=== PATIENT | female | born 1960 | race Caucasian/White ===

== ENCOUNTER → 2017-03-04 | Outpatient (CLI) | payer BC ==
[~2017-03-04] MED LIST: CITA20TA4 PO; MULT1TAB10 PO; QUES4POW2 PO; XYZA5TAB2 PO; [UNRECOGNIZED DRUG - CODE] PO
[2017-03-04 10:30] LABS: BASO % 0.2 % (0.0-1.0); EOS # 0.1 K/mm3 (0.0-0.50); EOS % 1.1 % (0.0-3.0); LARGE UNSTAINED CELL # 0.3 K/mm3 (0.0-0.4); LYMPH # 2.4 K/mm3 (1.5-4.5); LYMPH % 36.5 % (24.0-44.0); MEAN CORPUSCULAR HEMOGLOBIN 30.6 pg (27.0-33.0); MEAN CORPUSCULAR HGB CONC 33.7 g/dl (32.0-36.5); MONO # 0.5 K/mm3 (0.0-0.8); MONO % 7.5 % (0.0-5.0); NEUTROPHILS # 3.4 K/mm3 (1.8-7.7); NEUTROPHILS % 50.7 % (36.0-66.0); PLATELET COUNT, AUTOMATED 242 k/mm3 (150-450); RED CELL DISTRIBUTION WIDTH 11.8 % (11.5-14.5); WHITE BLOOD COUNT 6.6 K/mm3 (4.0-10.0)
[2017-03-04 10:51] LABS: ANION GAP 6 MEQ/L (8-16); BLOOD UREA NITROGEN 24 MG/DL (7-18); CALCIUM LEVEL 8.9 MG/DL (8.5-10.1); CARBON DIOXIDE LEVEL 31 MEQ/L (21-32); CHLORIDE LEVEL 103 MEQ/L (98-107); CREATININE FOR GFR 0.78 MG/DL (0.55-1.02); GLOMERULAR FILTRATION RATE > 60.0 (>51); GLUCOSE, FASTING 83 MG/DL (70-105); POTASSIUM SERUM 4.5 MEQ/L (3.5-5.1); SODIUM LEVEL 140 MEQ/L (136-145)
--- NOTE | 2017-03-05 08:01 | ECGEPIP ---
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
== END ==
LOC: M LAB 09:25
PROVIDERS: ATTEND Podiatrist
DX: Z01.818 Encounter for other preprocedural examination (principal); R00.1 Bradycardia, unspecified; M72.2 Plantar fascial fibromatosis

== ENCOUNTER → 2017-03-25 | Day surgery (SDC) | payer BC ==
[~2017-03-25] VITALS: Ht 172.7 cm; Wt 70.3 kg
[~2017-03-25] MED LIST changes: +BACITRACIN PWD 50,000 UNITS VIAL As Ordered ONE; +BUPIVACAINE HCL 0.5% 30 ML VIAL As Ordered ONE; +KETOROLAC 60 MG/2 ML VIAL (J1885) As Ordered ONE; +LIDOCAINE 2% INJ 100 MG/5 ML SDV (FOR ANES.) As Ordered ONE; +LIDOCAINE 2% MDV 20 ML VIAL As Ordered ONE; +MIDAZOLAM INJ 2 MG/2 ML VIAL (J2250) As Ordered ONE; +NEOSPORIN GU IRRIG 20 ML VIAL As Ordered ONE; +ONDANSETRON 4MG/2ML VIAL (J2405) As Ordered ONE; +PROPOFOL 200 MG/20 ML VIAL As Ordered ONE; +dexameTHASONE 4 MG/ML 1ML VIAL (J1100) As Ordered ONE; +fentaNYL 100 MCG/2 ML INJECTION (J3010) As Ordered ONE
--- NOTE | 2017-03-25 11:46 | REP ---
Clinical: Baseline postoperative evaluation. Technique: Portable AP, lateral, oblique views. Findings: Postoperative changes involving the first toe noted. Overlying swelling and subcutaneous emphysema identified. Alignment is maintained. Mild degenerative changes at the first tarsometatarsal joint with sub chondral sclerosis and marginal osteophyte formation noted. Impression: Postoperative changes. Degenerative changes. Normal alignment. Signed by Casey Chiu MD 03/25/2017 11:37 A
[2017-03-25 13:00] VITALS: BP 141/81
--- NOTE | 2017-03-26 14:45 | RO ---
DATE OF PROCEDURE: 03/25/2017 PREPROCEDURE DIAGNOSES: Plantar fasciitis of the left foot and hallux limitus deformity of the right foot. POSTPROCEDURE DIAGNOSES: Plantar fasciitis of the left foot and hallux limitus deformity of the right foot. SURGEON: Thiago Rizvi DPM TECHNICAL SALES SUPPORT MANAGER: None. ANESTHESIA: Local, monitored anesthesia care (MAC). Procedure: ENDOSCOPIC PLANTAR FASCIOTOMY, LEFT FOOT: CHEILECTOMY OF FIRST METATARSOPHALANGEAL JOINT, RIGHT FOOT: IRRIGATION: Dilute bacitracin, neomycin and polymyxin B solution. HEMOSTASIS: Ankle tourniquet at 200 mmHg for 16 minutes on the left ankle and 25 minutes on the right. HARDWARE UTILIZED: None. ESTIMATED BLOOD LOSS: Less than 5 mL. DESCRIPTION OF PROCEDURE: On 03/25/2017, this 56-year-old white female was taken from her hospital room to the operating room and placed on the operating room table in a supine position. Following the induction of IV sedation, local and regional anesthesia, the left and right lower extremities were prepped and draped in the usual aseptic manner. Attention was directed to the patient's left foot where the tourniquet was rapidly inflated and the following procedure was performed: ENDOSCOPIC PLANTAR FASCIOTOMY, LEFT FOOT: Attention was directed to the patient's left foot where a small 6 to 7 mm vertical incision was placed just distal to the medial tuberosity of the left heel. Utilizing the dissection scissor, dissection was carried inferior to the plantar fascia. Utilizing tissue distender, the area was distended and an Arthrex center line EPF plate was then introduced into the wound, visualizing the plantar fascia. Approximately 3/4 of the plantar fascia was then transected under direct visualization to exposure of the first muscle layer. The endoscope was then removed and the wound was flushed with copious amount of dilute bacitracin, neomycin and polymyxin B solution. Attention was directed toward closure where the subcutaneous tissues were coapted and maintained utilizing #5-0 Monocryl in a simple and interrupted fashion and the skin was coapted and maintained with #4-0 Monocryl in a horizontal mattress fashion. Dry sterile dressing was applied consisting of Adaptic, 4 x 4, 4 x 4 splints, Quentin and Kerlix. Attention was then directed to the patient's right foot where the following p[procedure was performed: CHEILECTOMY OF FIRST METATARSOPHALANGEAL JOINT, RIGHT FOOT: Attention was directed to the patients right foot where a 5 cm incision was placed over the first metatarsophalangeal joint medial to the extensor tendon. The incision was deepened through subcutaneous tissues and all coursing venous tributaries were identified, underscored, clamped, cut, ligated, and electrocoagulated as necessary. A linear capsulotomy was then performed in the same plane was the original skin incision. Capsular and periosteal structures were then dissected free in one continuous layer, dorsal, medially and laterally thus creating a capsular and periosteal type envelope. The sesamoids were released with a metatarsal elevator. The medial eminence was osteotomized from dorsal to plantar with a sagittal saw exiting medial to the sesamoidal groove. A large cystic erosion was seen in the dorsal 30% of the articular cartilage; however, with osteotomy through this exostosis, this totally encompassed the area of denuded bone. Dorsal 20% of the proximal phalanx was similarly osteotomized from dorsal to plantar. The wound was then rasped to a smooth contour with a handheld rasp. The wound was flushed with copious amounts of dilute bacitracin, neomycin and polymyxin B solution. Closure was then obtained with #2-0 Monocryl in a simple, interrupted type fashion. Subcutaneous tissues were coapted and maintained utilizing #4-0 Monocryl in a simple interrupted type fashion. The skin incision was coapted and maintained utilizing #5-0 Monocryl in a continuous subcuticular type fashion. This was additionally reinforced with Steri-Strips. Following the completion of the surgical procedure, 4 mg of dexamethasone sodium phosphate was instilled proximal to the surgical site. Attention was directed towards bandaging where a sterile compressive bandage was applied consisting of Adaptic, 4x4s, 4x4 splints, Quentin, Kerlix and Coban. The ankle pneumatic tourniquet was rapidly deflated and instantaneous capillary filling time was noted in digits one through five of the patients right foot. The patient, having apparently tolerated the surgical procedure well, was taken from the operating room to the recovery room with vital signs stable and the patient afebrile for further monitoring by the anesthesia department. All surgical specimens removed during the operative procedure were sent to pathology for gross and microscopic examination. Postoperative instructions will be given upon discharge. JASWINDER
== END ==
LOC: M SDC 07:36
PROVIDERS: ATTEND Podiatrist
DX: M20.21 Hallux rigidus, right foot (principal); M72.2 Plantar fascial fibromatosis; M79.671 Pain in right foot; M79.672 Pain in left foot; F43.21 Adjustment disorder with depressed mood; K52.839 Microscopic colitis, unspecified; Z87.891 Personal history of nicotine dependence; Z79.899 Other long term (current) drug therapy
CPT/HCPCS: 28289; 29893; 73630; 88300; 97116; J0690; J1100; J1885; J2250; J2405; J3010

== ENCOUNTER → 2017-04-12 | Outpatient (CLI) | payer BC ==
[~2017-04-12] MED LIST changes: -BACITRACIN PWD 50,000 UNITS VIAL As Ordered ONE; -BUPIVACAINE HCL 0.5% 30 ML VIAL As Ordered ONE; -KETOROLAC 60 MG/2 ML VIAL (J1885) As Ordered ONE; -LIDOCAINE 2% INJ 100 MG/5 ML SDV (FOR ANES.) As Ordered ONE; -LIDOCAINE 2% MDV 20 ML VIAL As Ordered ONE; -MIDAZOLAM INJ 2 MG/2 ML VIAL (J2250) As Ordered ONE; -NEOSPORIN GU IRRIG 20 ML VIAL As Ordered ONE; -ONDANSETRON 4MG/2ML VIAL (J2405) As Ordered ONE; -PROPOFOL 200 MG/20 ML VIAL As Ordered ONE; -dexameTHASONE 4 MG/ML 1ML VIAL (J1100) As Ordered ONE; -fentaNYL 100 MCG/2 ML INJECTION (J3010) As Ordered ONE
--- NOTE | 2017-04-12 14:14 | REPMRS ---
Patient History The patient states she had a clinical breast exam in 04/23 Patient is postmenopausal. Family history of prostate cancer in father at age 50 or over, breast cancer in maternal grandmother at age 50 or over, and colorectal cancer in paternal grandmother at age 50 or over. Digital Woman Screen Mammo: April 12, 2017 - Exam #: [id number] Bilateral CC and MLO view(s) were taken. Technologist: Sherri Villagomez, Technologist Prior study comparison: October 20, 2016, right breast digital mammo diagnostic unilateral, performed at [facility]. April 06, 2016, digital mammo diagnostic bilateral, performed at [facility]. March 26, 2015, digital woman screen mammo performed at [facility]. FINDINGS: There are scattered fibroglandular densities. There has been no change in the appearance of the mammogram from the prior studies. There is a mild amount of scattered fibroglandular density which is fairly symmetric. There is no interval development of dominant mass, architectural distortion, or clustered microcalcification suggestive of malignancy. ASSESSMENT: BI-RADS/ACR category 1 mammogram. Negative. Recommendation Routine screening mammogram in 1 year (for women over age 40). This mammogram was interpreted with the aid of an FDA-approved computer-aided dectection system. Electronically Signed By: Walter Ramos MD 04/12/17 [id number]
== END ==
LOC: M WHC 13:14
PROVIDERS: ATTEND Nurse Practitioner Family
DX: Z12.31 Encounter for screening mammogram for malignant neoplasm of breast (principal); Z78.0 Asymptomatic menopausal state; Z80.3 Family history of malignant neoplasm of breast; Z80.0 Family history of malignant neoplasm of digestive organs

== ENCOUNTER → 2018-06-27 | Outpatient (REF) | payer BC ==
[2018-06-30 14:57] LABS: HPV HYBRID CAPTURE II Negative (Negative)
== END ==
LOC: M SFHCWAGY 16:07
DX: Z12.4 Encounter for screening for malignant neoplasm of cervix (principal)
CPT/HCPCS: G0123

== ENCOUNTER → 2018-06-27 | Outpatient (CLI) | payer BC | LOC: M WHC 15:39 | DX: Z12.31 Encounter for screening mammogram for malignant neoplasm of breast (principal); Z78.0 Asymptomatic menopausal state | CPT/HCPCS: 77067 ==

== ENCOUNTER → 2019-06-29 | Outpatient (CLI) | payer BC ==
[~2019-06-29] MED LIST changes: -CITA20TA4 PO; +CITA20TA6 PO; +D3 S1CAP3 PO; -[UNRECOGNIZED DRUG - CODE] PO
--- NOTE | 2019-06-29 10:02 | REP ---
BILATERAL SCREENING DIGITAL MAMMOGRAM WITH 3D TOMOSYNTHESIS: There are no palpable abnormalities or other breast complaints. The the patient states she had a clinical breast examination June,. The the patient states she performs self-breast examinations zero times per year. The Tyrer-Cuzick Score is: 12.7% . Comparison is 03/26/2015. There are scattered areas of fibroglandular density. There is no dominant mass, micro calcific cluster or architectural distortion that would indicate malignancy. There are benign calcifications. There are no additional findings on 3D tomosynthesiss. There is no change from the prior study. Impression: BIRADS/ACR category 2 mammogram. Benign findings. Recommendation: Routine annual screening mammography. This mammogram was interpreted with the aid of a FDA approved computer-aided detection system. A. Negative mammogram reports should not delay biopsy if a dominant or clinically suspicious mass is present. B. Not all breast cancers are identified by mammography or tomosynthesis. C. Adenosis and dense breasts may obscure an underlying neoplasm. Patient letter M1. Electronically Signed by Behzad Gold MD 06/29/2019 09:54 A
== END ==
LOC: M WHC 08:28
PROVIDERS: ATTEND Nurse Practitioner Family
DX: Z12.31 Encounter for screening mammogram for malignant neoplasm of breast (principal)

== ENCOUNTER → 2020-11-19 | Outpatient (CLI) | payer BC ==
--- NOTE | 2020-11-19 09:21 | REPMRS ---
Patient History The patient states she had a clinical breast exam in November 2020. Patient is postmenopausal. Family history of prostate cancer at age 50 or over in father, breast cancer at age 50 or over in maternal grandmother, colorectal cancer at age 50 or over in paternal grandmother, endometrial cancer at age 87 in maternal aunt. No Hormone Replacement Therapy 3D TOMOSYNTHESIS WAS PERFORMED. The [facility] lifetime risk for breast cancer is 12.0%. Volpara breast density b. Bilateral breast reduction 2019. Digital Woman Screen Mammo: November 19, 2020 - Exam #: [id number] Bilateral CC and MLO view(s) were taken. Technologist: Ava Barone, Technologist Prior study comparison: June 29, 2019, bilateral digital woman screen mammo performed at [facility]. June 27, 2018, bilateral digital woman screen mammo performed at [facility]. FINDINGS: There are scattered fibroglandular densities. There has been no change in the appearance of the mammogram from the prior studies. There is a mild amount of residual fibroglandular tissue which is fairly symmetric. There is no interval development of dominant mass, architectural distortion, or clustered microcalcification suggestive of malignancy. Assessment: BI-RADS/ACR category 1 mammogram. Negative Mammogram. Recommendation Routine screening mammogram in 1 year (for women over age 40). This mammogram was interpreted with the aid of an FDA-approved computer-aided dectection system. Electronically Signed By: Behzad Campos MD 11/19/20 [id number]
== END ==
LOC: M WHC 08:05
PROVIDERS: ATTEND Nurse Practitioner Family
DX: Z12.31 Encounter for screening mammogram for malignant neoplasm of breast (principal)

== ENCOUNTER → 2020-11-19 | Outpatient (REF) | payer BC | LOC: M SFHCWAGY 12:48 | PROVIDERS: ATTEND Nurse Practitioner Family | DX: Z12.4 Encounter for screening for malignant neoplasm of cervix (principal) ==

== ENCOUNTER → 2021-04-22 | Outpatient (REF) | payer BC ==
[2021-04-22 13:39] LABS: BACTERIA, URINE AUTO NEGATIVE (NEGATIVE); MUCUS, URINE SMALL (NEGATIVE); RBC, URINE AUTO 0 /HPF (0-3); SQUAMOUS EPITHELIAL CELL UR AU 1 /HPF (0-6); WBC, URINE AUTO 1 /HPF (0-3)
== END ==
LOC: M SMT 12:04
PROVIDERS: ATTEND Specialist
DX: N39.0 Urinary tract infection, site not specified (principal)

== ENCOUNTER → 2021-04-28 | Outpatient (CLI) | payer BC ==
--- NOTE | 2021-04-28 16:01 | REP ---
INDICATION: RECURRENT UTI. COMPARISON: None. FINDINGS: Multiple ultrasonographic images of the right kidney show the right kidney to measure 10.1 x 4.8 x 4.9 cm. The renal cortical echotexture is unremarkable. There are no masses. There is good corticomedullary differentiation. There is no hydronephrosis. There are no perinephric fluid collections. Multiple ultrasonographic images of the left kidney show the left kidney to measure 11.6 x 5.1 x 5.7 cm. The renal cortical echotexture is unremarkable. There are no masses. There is good corticomedullary differentiation. There is no hydronephrosis. There are no perinephric fluid collections. IMPRESSION: Within normal limits <Electronically signed by Kevin Young > 04/28/21 [id number]
== END ==
LOC: M RAD 13:55
PROVIDERS: ATTEND Specialist
DX: N39.0 Urinary tract infection, site not specified (principal)

== ENCOUNTER → 2022-03-18 | Outpatient (CLI) | payer BC | LOC: M WHC 15:22 | PROVIDERS: ATTEND Advanced Practice Midwife | DX: Z12.31 Encounter for screening mammogram for malignant neoplasm of breast (principal) ==

== ENCOUNTER → 2023-10-20 | Outpatient (CLI) | payer BC | LOC: M WHC 13:21 | PROVIDERS: ATTEND Advanced Practice Midwife | DX: Z12.31 Encounter for screening mammogram for malignant neoplasm of breast (principal) ==

== ENCOUNTER → 2023-12-05 | Outpatient (CLI) | payer BC | LOC: M CARPUL 07:44 | PROVIDERS: ATTEND Internal Medicine Cardiovascular Disease | DX: R06.02 Shortness of breath (principal) ==

== ENCOUNTER → 2024-06-02 | Outpatient (CLI) | payer BC | LOC: M EKG 12:42 | PROVIDERS: ATTEND Internal Medicine Cardiovascular Disease | DX: R00.2 Palpitations (principal) ==

== ENCOUNTER → 2024-06-28 | Outpatient (REF) | payer BC ==
[2024-06-28 13:38] LABS: APPEARANCE, URINE HAZY (CLEAR); BACTERIA, URINE AUTO NEGATIVE (NEGATIVE); BILIRUBIN, URINE AUTO NEGATIVE (NEGATIVE); BLOOD, URINE BLOOD NEGATIVE (NEGATIVE); COLOR, URINE YELLOW (YELLOW); GLUCOSE, URINE (UA) AUTO NEGATIVE (NEGATIVE); KETONE, URINE AUTO NEGATIVE (NEGATIVE); LEUKOCYTE ESTERASE, URINE AUTO NEGATIVE (NEGATIVE); MUCUS, URINE SMALL (NEGATIVE); NITRITE, URINE AUTO NEGATIVE (NEGATIVE); PROTEIN, URINE AUTO NEGATIVE (NEGATIVE); RBC, URINE AUTO 0 /HPF (0-3); SPECIFIC GRAVITY URINE AUTO 1.016 (1.002-1.035); SQUAMOUS EPITHELIAL CELL UR AU 0 /HPF (0-6); UROBILINOGEN, URINE AUTO 0.2 mg/dL (0.0-2.0); WBC, URINE AUTO 2 /HPF (0-3)
== END ==
LOC: M SMT 12:18
PROVIDERS: ATTEND Specialist
DX: N39.0 Urinary tract infection, site not specified (principal)

== ENCOUNTER → 2025-01-24 | Outpatient (REF) | payer BC ==
[2025-01-28 13:44] LABS: HPV APTIMA Not Detected (Not Detected)
== END ==
LOC: M PLALAB 10:31
PROVIDERS: ATTEND Advanced Practice Midwife
DX: Z12.4 Encounter for screening for malignant neoplasm of cervix (principal)
CPT/HCPCS: 87624; G0123

== ENCOUNTER → 2025-01-24 | Outpatient (CLI) | payer BC | LOC: M WHC 11:18 | PROVIDERS: ATTEND Advanced Practice Midwife | DX: Z12.31 Encounter for screening mammogram for malignant neoplasm of breast (principal); Z13.820 Encounter for screening for osteoporosis ==

== ENCOUNTER → 2025-04-20 | Outpatient (CLI) | payer BC | LOC: M EKG 12:15 | PROVIDERS: ATTEND Internal Medicine Cardiovascular Disease | DX: I47.19 Other supraventricular tachycardia (principal); Z53.9 Procedure and treatment not carried out, unspecified reason ==